=== PATIENT | female | born 1950 | race Caucasian/White ===

== ENCOUNTER → 2023-11-25 09:00 | Outpatient (REF) | payer MEDICARE, SELFPAY ==
[2023-11-25 10:23] LABS: % Basophils 0.6 % (0-2); % Eosinophils 1.4 % (0-6); % Immature Granulocytes 1.6 % (0-0.5); % Lymphocytes 27.4 % (20.5-51.1); % Monocytes 12.4 % (1.7-9.3); % Neutrophils 56.6 % (42.2-75.2); Absolute Eosinophils 0.1 10^3/uL (0-0.7); Absolute Immature Granulocytes 0.1 10^3/uL (0-0.05); Absolute Lymphocytes 1.8 10^3/uL (1.2-3.4); Absolute Monocytes 0.8 10^3/uL (0.1-0.6); Absolute Neutrophils 3.6 10^3/uL (1.4-6.5); Hematocrit 37.1 % (37.0-47.0); Hemoglobin 12.3 g/dL (12.0-16.0); Mean Corp Hgb Conc. 33.2 g/dL (33.0-37.0); Mean Corpuscular Hgb 30.9 pg (27.0-31.0); Mean Corpuscular Volume 93.2 fL (81.0-99.0); Mean Platelet Volume 10.8 fL (7.4-10.4); Nucleated Red Blood Cells % 0 %; Platelet Count 271 10^3/uL (130-400); Red Blood Cell Count 3.98 10^6/uL (4.20-5.40); Red Cell Dist. Width 13.2 % (11.5-14.5); White Blood Cell Count 6.4 10^3/uL (4.8-10.8)
[2023-11-25 10:48] LABS: ALT (SGPT) 264 U/L (0-35); AST (SGOT) 50 U/L (14-36); Albumin 3.9 g/dl (3.5-5.0); Alkaline Phosphatase 197 U/L (38-126); Blood Urea Nitrogen 13 mg/dl (7-17); Calcium 9.6 mg/dl (8.4-10.2); Carbon Dioxide 29 mmol/L (22-30); Chloride 103 mmol/L (98-107); Glucose 103 mg/dl (70-99); HDL Cholesterol 26 mg/dl; LDL Cholesterol, Calculated 118 mg/dl; Potassium 4.6 mmol/L (3.5-5.1); Sodium 142 mmol/L (135-145); Total Bilirubin 3.1 mg/dl (0.2-1.3); Total Cholesterol 190 mg/dl (50-199); Total Protein 7.1 g/dl (6.3-8.2); Triglyceride 230 mg/dl (10-149); Very Low Density Lipoprotein 46 mg/dl (0-30); eGFR > 60.00
[2023-11-25 11:08] LABS: TSH Reflex To Free T4 2.21 uIU/ml (0.47-4.68)
== END ==
LOC: REG 09:00
PROVIDERS: ATTENDING PHYSICIAN Family Medicine
DX: R73.9 Hyperglycemia, unspecified (principal); Z79.899 Other long term (current) drug therapy; E78.41 Elevated Lipoprotein(a); Z00.00 Encounter for general adult medical examination without abnormal findings; E83.52 Hypercalcemia
CPT/HCPCS: 36415; 80053; 80061; 84443; 85025

== ENCOUNTER 2023-11-25 22:42 | Observation (INO) | payer MEDICARE, SELFPAY ==
[2023-11-25 17:28] VITALS: BP 140/88
[2023-11-25 19:56] VITALS: BP 118/62
[2023-11-25 19:58] VITALS: BMI 19.3
--- NOTE | 2023-11-25 20:53 | ED.GENMED ---
History of Present Illness
General
Chief Complaint: Abnormal Lab Value
Source: patient
Exam Limitations: none
Time Seen by Provider: 11/25/23 19:12
Nursing documentation reviewed up to this point in time: agreed with
Travel History
Have you had any contact with someone who has COVID-19?: No
Do you have any symptoms of coronavirus? Fever > 100 degrees, chills, cough, shortness of breath, sore throat, loss of taste or smell, muscle aches, or headache?: No
History of Present Illness
History of Present Illness:
Patient presents to ED after an outpatient routine, annual blood work revealed abnormal liver function test. Of note, 1 week ago, patient does report having had 1 episode of vomiting preceded by upper abdominal pain, which now has resolved
completely. Denies fever or chills. Denies trauma. Denies recent change in diet. Denies recent travel. Denies sick contact. Patient otherwise is healthy and only takes bbhe-lgo-kfkjoex vitamins and fish oil. Denies previous history of similar
symptoms.
Review of Systems
Review of Systems
Allergies reviewed?: Yes
All Other Systems: ROS reviewed and negative except as documented in HPI and ROS
Constitutional: Reports no symptoms; Denies fever
ABD/GI: Reports abdominal pain, nausea and vomiting; Denies diarrhea
: Reports no symptoms
Musculoskeletal: Reports no symptoms
Skin: Reports no symptoms
Neurological: Reports no symptoms; Denies weakness
Phy Exam
Physical Exam
Physical Exam:
Physical Exam
General: no apparent distress, not acutely ill. afebrile
Head: nc/at. eomi
Neck: supple. no meningeal signs.
Heart: s1/s2 regular rate and rhythm, no murmur. equal radial pulses.
Lungs: no acute respiratory distress. clear bilaterally
Abdomen: normal bowel sounds. not tender. no distention.
Neuro: alert and oriented. no focal neurological deficits
Skin: no rash
Psychiatric: well kept. interactive and cooperative
Extremities: no edema. no calf tenderness.
Course
Orders/Labs/Results
Orders:
Orders
11/25/23 20:39
US Abdomen Complete/Upper Urgent
Comment:
Reason For Exam: upper abd pain with abnormal LFTs
11/25/23 22:15
0.9% Sodium Chloride 1000 ml [Nss] 1,000 ml IV 100 mls/hr
11/25/23 22:29
Admit/Transfer Patient As Directed
Co-Sign Provider:
Level of Care: Observation services
Assign to:: Medical/Surgical
Physician / Group: deo
Diagnosis: transaminitis
11/25/23 22:30
Code Status As Directed
Resuscitation Status: Full Code
Vital Signs
Initial and Last Documented VS:
Initial Vital Signs
Temp Pulse Resp BP Pulse Ox
99.2 F 105 16 140/88 100
11/25/23 17:28 11/25/23 17:28 11/25/23 17:28 11/25/23 17:28 11/25/23 17:28
Last Documented Vital Signs
Temp Pulse Resp BP Pulse Ox
99.2 F 105 16 107/94 97
11/25/23 17:28 11/25/23 17:28 11/25/23 17:28 11/25/23 21:20 11/25/23 21:30
MDM/Problems Addressed
MDM/Problems Addressed:
Abdominal ultrasound report reviewed and discussed with COMPA Conde. Recommends MRCP in a.m.
*Critical Care Note
Total Time (30-74mins, 75-104mins- exclusive of procedures): Not Applicable
ED Attending Note
-
Portions of this chart may have been created with voice recognition software.� Occasional wrong word or��sound alike� substitutions may have occurred due to the inherent limitations of voice recognition software.
Discharge Plan
Departure
Patient Disposition: Admit
Date of Disposition: 11/25/23
Time of Disposition: 21:52
Admit to: Med/Surg
Presentation/result/management discussed w/ accepting MD/DO: Hospitalist
Discharge Problem:
Abnormal LFTs, Abdominal ultrasound, abnormal
Interventions
Interventions:
*Risk Screen - Suicide Last Done: 11/25/23 19:58
*General Assessment Last Done: 11/25/23 19:58
*Neglect/Abuse Screening Last Done: 11/25/23 19:58
ED- Fall Risk Assessment Last Done: 11/25/23 20:01
*ED COVID-19 Vaccine History Last Done: 11/25/23 17:28
[2023-11-25 21:20] VITALS: BP 107/94
[2023-11-25] MEDS: NSS 1000 IV (22:04)
--- NOTE | 2023-11-25 22:35 | HPS.HSE ---
Family Physician
-
Family Physician: Tiffany Urbina
Chief Complaint
-
transaminitis
History of Present Illness
73-year-old female without past medical history of gallstones, cholecystectomy, presenting for abnormal liver function tests on annual outpatient labs. 1 week ago patient 1 episode of vomiting preceded by upper abdominal pain which is now
completely resolved. She states that she has been having increasing gas pain building up to last week. She took Pepto-Bismol and Pepcid for the pain. She did intermittently have some chills. Her urine has been darker in her stool has been darker
secondary to Pepto-Bismol but denies any lightening of stool.
Patient states that she took aloe vera last week. She also took some milk thistle this week to help with the pain.
Patient has a history of gallstones and infected gallbladder status post cholecystectomy 15 years ago. Prior to cholecystectomy she was having periodic abdominal pain attribute to gallstones. She denies any recurrent abdominal pain since the
cholecystectomy until last week.
Denies smoking or alcohol use.
Medical History
Past Medical History
Past Medical History: Reports Other (gallstones, cholecystectomy)
Past Surgical History: Reports Cholecystectomy
Social History
Tobacco: Non-smoker
Alcohol: None
Drug: None
Family History
Family History: Not pertinent
Allergies / Home Medications
Allergies reflects when Allergies were last updated in [facility].
Home Medications with original date entered in [facility]
Allergy/Medication List:
Allergies
Allergy/AdvReac Type Severity Reaction Status Date / Time
No Known Allergies Allergy Verified 11/25/23 22:00
Home Medications
ascorbic acid (vitamin C) 1,000 mg tablet (Vitamin C) 1,000 mg PO QPM 11/25/23
cholecalciferol (vitamin D3) 25 mcg (1,000 unit) tablet (Vitamin D3) 25 mcg PO QPM 11/25/23
omega 5-gox-fzk-fish oil 1,000 mg (120 mg-180 mg) capsule (Fish Oil) 1 cap PO QPM 11/25/23
Review of Systems
-
History Source: Patient
A 12 point ROS was completed and negative except as noted: Yes
Constitutional: Reports No Symptoms
EENT: Reports No Symptoms
Respiratory: Reports No Symptoms
Cardiac: Reports No Symptoms
Abdomen/GI: Reports See HPI
: Reports No Symptoms
Musculoskeletal: Reports No Symptoms
Skin: Reports No Symptoms
Neurological: Reports No Symptoms
Endocrine: Reports No Symptoms
Hematologic/Lymphatic: Reports No Symptoms
Psych: Reports No Symptoms
Physical Exam
Vital Signs
Vital Signs
Temp Pulse Resp BP Pulse Ox
99.2 F 105 16 107/94 97
11/25/23 17:28 11/25/23 17:28 11/25/23 17:28 11/25/23 21:20 11/25/23 21:30
Physical Exam
General: Well Developed, Well Nourished and No Apparent Distress
HEENT: NormoCephalic, Moist mucous membranes and Atraumatic
Respiratory: Clear
Cardiac: S1/S2 and Regular Rhythm; No Murmur or Rub
GI: Soft, Non Tender, Non Distended and Normal Bowel Sounds; No Organomegaly
Rectal: Deferred by Provider
Musculoskeletal: No Clubbing, No Cyanosis and No Edema
Skin: No Rash
Neuro: Nonfocal/grossly intact
Data Reviewed
-
Lab Data: Labs Reviewed by me
Old Records: Reviewed
Impression/Plan
-
IMPRESSION:
PLAN:
# Transaminitis/hyperbilirubinemia possible etiologies include biliary obstruction, herbal supplements
-Abdominal ultrasound shows biliary ductal dilatation, increased echogenicity in the liver consistent with underlying hepatocellular disease
-Check hepatitis panel
-MRCP
-GI consulted
History of gallstones/cholecystitis status postcholecystectomy
Full code
DVT prophylaxis�heparin
Regular diet
[2023-11-25 23:00] VITALS: BP 126/61
[2023-11-25 23:14] VITALS: BMI 19.4
[2023-11-25 23:22] VITALS: BP 136/65
[2023-11-26] VITALS (15 sets, daily range): BP systolic 107–157; BP diastolic 37–77
--- NOTE | 2023-11-26 00:42 | PTCARENOTE ---
Received patient from ER, AAOx4. Ambulating with steady gait. No c/o pain at this time. Oriented to unit, call rome in reach. Plan of care continues.
[2023-11-26 05:35] LABS: % Basophils 1.1 % (0-2); % Eosinophils 1.8 % (0-6); % Immature Granulocytes 1.3 % (0-0.5); % Lymphocytes 33.8 % (20.5-51.1); % Monocytes 14.6 % (1.7-9.3); % Neutrophils 47.4 % (42.2-75.2); Absolute Basophils 0.1 10^3/uL (0-0.2); Absolute Eosinophils 0.1 10^3/uL (0-0.7); Absolute Immature Granulocytes 0.1 10^3/uL (0-0.05); Absolute Lymphocytes 1.9 10^3/uL (1.2-3.4); Absolute Monocytes 0.8 10^3/uL (0.1-0.6); Absolute Neutrophils 2.6 10^3/uL (1.4-6.5); Hematocrit 31.4 % (37.0-47.0); Hemoglobin 10.3 g/dL (12.0-16.0); Mean Corp Hgb Conc. 32.8 g/dL (33.0-37.0); Mean Corpuscular Hgb 30.8 pg (27.0-31.0); Mean Platelet Volume 10.7 fL (7.4-10.4); Nucleated Red Blood Cells % 0 %; Platelet Count 233 10^3/uL (130-400); Red Blood Cell Count 3.34 10^6/uL (4.20-5.40); Red Cell Dist. Width 13.1 % (11.5-14.5); White Blood Cell Count 5.5 10^3/uL (4.8-10.8)
[2023-11-26 05:57] LABS: ALT (SGPT) 186 U/L (0-35); AST (SGOT) 47 U/L (14-36); Alkaline Phosphatase 142 U/L (38-126); Blood Urea Nitrogen 15 mg/dl (7-17); Calcium 8.6 mg/dl (8.4-10.2); Carbon Dioxide 27 mmol/L (22-30); Chloride 110 mmol/L (98-107); Estimated Creatinine Clearance 67 ml/min; Glucose 95 mg/dl (70-99); Potassium 4.3 mmol/L (3.5-5.1); Sodium 142 mmol/L (135-145); Total Bilirubin 1.9 mg/dl (0.2-1.3); Total Protein 5.6 g/dl (6.3-8.2); eGFR > 60.00
[2023-11-26 06:25] LABS: Hepatitis B Surface Antigen Negative (Negative)
[2023-11-26 06:33] LABS: Hepatitis A IgM Antibody Negative (Negative); Hepatitis B Core Ab, IgM Negative (Negative)
[2023-11-26 06:42] LABS: Hepatitis B Surface Antibody Positive; Hepatitis C Antibody Negative (Negative)
--- NOTE | 2023-11-26 09:01 | CON.GI ---
Addendum entered and electronically signed by Susanna Veronica DO 11/26/23 17:12:
Agree with note below. Patient has evidence of choledocholithiasis on MRI/MRCP and will go for ERCp today with Dr. Hagen
Addendum entered and electronically signed by TONY Hector 11/26/23 13:57:
MRI /MRCP showing choledocholithiasis with 12 mm filling defect in the distal common bile duct which may represent a collection of multiple calculi. Secondary biliary ductal dilatation. Incidental findings include small hepatic and renal cysts.
Probable incidental left ovarian cyst. Consider further evaluation/follow-up pelvic ultrasound. 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
-- Patient, RN and medicine attending updated. Remains NPO. Will have ERCP later on today.
Original Note:
Consultation
-
Date/Time Consultation Requested: 11/25/230
Date/Time Consultation Performed: 11/26/23 0840
Requesting Provider: Dr. Quijano
Performing Provider: Dr. Veronica/TONY Tatum
Reason for Consultation: RUQ pain, dilated ducts, elevated LFTs
Medical History
Chief Complaint / HPI
Chief Complaint: elevated LFT, RUQ pain
History of Present Illness:
73 y/o female [id number] female with past medical history of hyperlipidemia, osteopenia and colon polyps presents to the emergency room after having outpatient labs that showed elevated LFTs. Prior to this the patient had epigastric/right
upper quadrant pain associated with low-grade fever, chills, bilious vomiting and bilirubinuria. Asked to evaluate for the same. The patient states that 1 week ago she started with acute onset of epigastric discomfort that she describes as a
burning with a tightness that radiated to the right and through to the back. She then described having bilious vomiting for approximately 1 day and a low-grade fever approximately 100 degrees. She did not take any Tylenol or NSAIDs for this fever.
She did take Pepcid and Pepto-Bismol which turned her stools darker. She did have bilirubinuria the following day. She states by Wednesday her pain subsided. The bilirubinuria continued. She did have a routine office visit scheduled and labs which
showed elevated liver function test. Because of this she was sent to the emergency room where she was found to have a temperature of 99.2. At that time WBC count 6.4, currently at 5.5, hemoglobin is 12.3 now 10.3. She does not have a known
anemia. She was given 1 L fluids and continues on IV fluids at this time. MCV 94.0, MCH 30.8, platelet count 233. The patient states that she used to drink 1 to 2 glasses of wine or beer but quit in August. BUN is normal at 15 with a
creatinine of 0.6. This was never elevated. Total bilirubin 1.9 (down from 3.1) direct bilirubin 1.3. AST 47 (down from 50), ALT 186 (down from 264), alk phos 142 (down from 197). Triglycerides 230, albumin 3.0. Hepatitis serologies negative.
No coags performed. Ultrasound the abdomen shows increased echogenicity in the liver compatible with underlying hepatocellular disease which is most commonly relating to fatty liver. Otherwise unremarkable ultrasound status postcholecystectomy.
Common bile duct measures up to 12 mm and there is mild intrahepatic biliary ductal dilatation. The patient denies any hematochezia, dysphagia or odynophagia. She denies any early satiety or unintentional weight loss. She denies any tattoos,
piercings, IV drug use, no recent travel, changes in medications. She only takes sqqh-lrs-ksdmmia vitamins. She has no changes in supplements. No sick contacts or raw or spoiled food.
Past Medical History
Past Medical History: Hypercholesterolemia and Other (osteopenia)
Past Surgical History: Cholecystectomy
Social History
Tobacco: Non-Smoker
Alcohol: Other (Was drinking 2 glasses wine/beer daily. Stopped in Aug)
Drug: None
Family History
Family History: Other (Family history of gastrointestinal malignancy or IBD)
Allergies / Home Medications
Allergy/AdvReac Type Severity Reaction Status Date / Time
No Known Allergies Allergy Verified 11/25/23 22:00
�Medication �Instructions �Recorded
ascorbic acid (vitamin C) 1,000 mg 1,000 mg PO QPM 11/25/23
tablet (Vitamin C)
cholecalciferol (vitamin D3) 25 25 mcg PO QPM 11/25/23
mcg (1,000 unit) tablet (Vitamin
D3)
omega 8-pvz-tih-fish oil 1,000 mg 1 cap PO QPM 11/25/23
(120 mg-180 mg) capsule (Fish Oil)
Review of Systems
-
All other systems: A 12 pt ROS was Negative except as stated above in HPI
Vital Signs
Temp Pulse Resp BP Pulse Ox
97.9 F 74 18 139/67 99
11/26/23 07:15 11/26/23 07:15 11/26/23 07:15 11/26/23 07:15 11/26/23 07:15
Physical Exam
Exam
General: Well Nourished and No Apparent Distress
HEENT: Other (Sclera icteric)
Respiratory: Clear
Cardiac: Regular Rhythm and Murmur
GI: Soft, Non Distended, Normal Bowel Sounds and Tender (Very mild tenderness right upper quadrant/epigastric)
Musculoskeletal: No Edema
Skin: Warm and Dry
Neuro: AO x 3
Psych: Calm
Results
WBC 5.5 10^3/uL (4.8-10.8) 11/26/23 04:47
Hgb 10.3 g/dL (12.0-16.0) L 11/26/23 04:47
Hct 31.4 % (37.0-47.0) L 11/26/23 04:47
MCV 94.0 fL (81.0-99.0) 11/26/23 04:47
Plt Count 233 10^3/uL (130-400) 11/26/23 04:47
Absolute Neuts (auto) 2.6 10^3/uL (1.4-6.5) 11/26/23 04:47
Sodium 142 mmol/L (135-145) 11/26/23 04:47
Potassium 4.3 mmol/L (3.5-5.1) 11/26/23 04:47
Chloride 110 mmol/L (98-107) H 11/26/23 04:47
Carbon Dioxide 27 mmol/L (22-30) 11/26/23 04:47
BUN 15 mg/dl (7-17) 11/26/23 04:47
Creatinine 0.6 mg/dL (0.6-1.0) 11/26/23 04:47
Calcium 8.6 mg/dl (8.4-10.2) 11/26/23 04:47
Total Bilirubin 1.9 mg/dl (0.2-1.3) H D 11/26/23 04:47
AST 47 U/L (14-36) H 11/26/23 04:47
ALT 186 U/L (0-35) H 11/26/23 04:47
Alkaline Phosphatase 142 U/L (38-126) H 11/26/23 04:47
Hepatitis A IgM Ab Negative (Negative) 11/26/23 04:47
Hep Bs Antibody Positive 11/26/23 04:47
Hep B Core IgM Ab Negative (Negative) 11/26/23 04:47
Hepatitis C Antibody Negative (Negative) 11/26/23 04:47
Diagnostic Image Results:
Ultrasound of the abdomen 11/25/23:
Liver is increased in echotexture without evidence of focal lesion. The portal and hepatic vessels appear grossly patent.
Gallbladder absent. Common bile duct measures up to 12 mm and there is mild intrahepatic biliary ductal dilatation, likely within normal limits for patient age and postcholecystectomy status.
Limited visualization of the tail of the pancreas, with the visualized portion of the pancreas unremarkable. Spleen measures 7.9 cm in length, which is not enlarged. No free fluid in the upper abdomen.
Right kidney measures 9.8 cm, and the left kidney measures 10.5 cm in length. No hydronephrosis.
Visualized portions of the abdominal aorta and inferior vena cava appear unremarkable.
Prior GI Procedures:
EGD: never had
Colonoscopy: 06/15/2022: ([facility]) One 7 mm polyp in the transverse colon, removed with
a cold snare. Resected and retrieved. (Tubular adenoma)
- Diverticulosis in the sigmoid colon and in the
descending colon.
- Non-bleeding external hemorrhoids.
- The examined portion of the ileum was normal.
Colonoscopy 02/20/2016: ([facility]) - One 15 mm polyp in the rectum. Resected and retrieved. (Tubulovillous adenoma)
Clips were placed. Treated with argon plasma coagulation
(APC).
- Non-bleeding external hemorrhoids.
- Mild diverticulosis in the sigmoid colon.
Assessment / Plan
-
73 y/o female [id number] female with past medical history of hyperlipidemia, osteopenia and colon polyps presents to the emergency room after having outpatient labs that showed elevated LFTs. Prior to this the patient had epigastric/right
upper quadrant pain associated with low-grade fever, chills, bilious vomiting and bilirubinuria. Total bilirubin 1.9 (down from 3.1) direct bilirubin 1.3. AST 47 (down from 50), ALT 186 (down from 264), alk phos 142 (down from 197). Triglycerides
230, albumin 3.0. Hepatitis serologies negative. No coags performed. Ultrasound the abdomen showing common bile duct measuring up to 12 mm and mild intrahepatic biliary ductal dilatation. Although patient is status postcholecystectomy in the
light of having right upper quadrant pain epigastric pain fevers and bilirubinuria MRI MRCP will be obtained to rule out choledocholithiasis.
Impression:
Elevated LFTs in an obstructive pattern
Right upper quadrant pain/epigastric pain
CBD dilatation up to 12 mm and mild intrahepatic ductal dilatation
Anemia, patient with dark stools although after Pepto-Bismol, BUN within normal limits
Plan:
-MRI/MRCP, patient going down now
-N.p.o. except for essential meds
-Continue IV fluids
-Check PT/INR
-Possibility of need for EUS/ERCP later today depending on results of MRI/MRCP. Discussed with patient.
-Repeat CBC later on today versus a.m. depending on outcome of MRI/MRCP and hospital course.
-Further recommendations to be forthcoming
Data Reviewed
-
Ultrasound: Report Reviewed by me
Old Records: Reviewed
-
-
Thank you for consultation and allowing me to participate in the patient's care. Please call the loss prevention lead GI physician during the after hours with any questions or concerns.
[2023-11-26 09:08] LABS: Direct Bilirubin 1.3 mg/dl (0.0-0.4)
[2023-11-26] MEDS: NSS 1000 IV (10:25)
[2023-11-26] MEDS: HEPARIN 5000 UNITS SC ×2 (10:26→20:34)
[2023-11-26 11:06] LABS: INR 1.04; PT 13.4 Sec (11.4-14.6)
--- NOTE | 2023-11-26 14:59 | W.PN.HOSP.TC ---
Today's Communication/Plan
-
for ERCP today
continue other care
Assessment / Plan
Assessment / Plan
MRI abd
Choledocholithiasis, with 12 mm filling defect in the distal common bile duct, which may represent a collection of multiple calculi. Secondary biliary ductal dilatation.
Incidental findings include small hepatic and renal cysts. Probable incidental left ovarian cyst. Consider further evaluation/follow-up pelvic ultrasound. 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
1. Acute choledocholithiasis
Transaminitis
History of cholecystectomy
-Abdominal ultrasound shows biliary ductal dilatation, increased echogenicity in the liver consistent with underlying hepatocellular disease
-MRI MRCP showing 1.2 cm distal CBD stone.
-GI evaluated and patient to be taken for ERCP
-No signs of sepsis/cholangitis clinically, start on zosyn if intra EGD finding suggestive of this
-NPO/IVF/Pain meds/anti-emetics
Normocytic anemia
Ovarian cyst
Hepatic cyst
Renal cyst
History of gallstones/cholecystitis status postcholecystectomy
Full code
DVT prophylaxis�heparin
Anticipated Discharge: 24 - 48 hours
Subjective/Interval History
-
Date of Service: November 26, 2023
Denies having any abdominal pain/nausea/vomiting
afebrile overnight
Objective Data
-
Labs:
Laboratory Results
11/26/23 11/26/23
04:47 10:41
WBC 5.5
Hgb 10.3 L
Hct 31.4 L
Plt Count 233
PT 13.4
INR 1.04
Sodium 142
Potassium 4.3
Chloride 110 H
Carbon Dioxide 27
BUN 15
Creatinine 0.6
Glucose 95
Calcium 8.6
Total Bilirubin 1.9 H D
AST 47 H
ALT 186 H
Alkaline Phosphatase 142 H
Vital Signs:
Vital Signs
Temp Pulse Resp BP Pulse Ox
97.9 F 74 18 139/67 99
11/26/23 07:15 11/26/23 07:15 11/26/23 07:15 11/26/23 07:15 11/26/23 09:00
Review of Systems
-
Respiratory: Reports No Symptoms
Cardiac: Reports No Symptoms
Abdomen/GI: Reports No Symptoms
Physical Exam
-
General: No Apparent Distress and Comfortable
HEENT: Negative Oxygen
Respiratory: Clear to Auscultation
Cardiac: Regular Rhythm and S1/S2; Negative Murmur or Rub
GI: Soft, Nontender and Nondistended
Musculoskeletal: No Edema
Neuro: Awake, Alert, Oriented, No Motor Deficits and Nonfocal/Grossly Intact
Psych: Calm
--- NOTE | 2023-11-26 15:58 | CM ---
Addendum entered by Gabrielle Schultz 11/26/23 16:20:
patient signed obs letter and placed in chart.
Original Note:
met with patient at bedside.patient lives alone in house with 1 [address],her bed and bath is on the second level,she amb i and is I with her adl.she has no home o2 or dme.she has never had a vn or been to ip rehab. her pcp is through [facility].her newsperson is her aunt pearl armando.
patient is adm with abd pain.she is npo,ivf,pain pain,antiemetics.she is for an ercp.Plan is dc home with no needs.patient drove herself to the er.
--- NOTE | 2023-11-26 16:00 | PTCARENOTE ---
Provided report to GI lab. Pt transported at this time.
[2023-11-26] MEDS: VITAMIN C 1000 MG PO (19:54)
[2023-11-26] MEDS: VITAMIN D3 (cholecalciferol) 25 MCG PO (19:54)
--- NOTE | 2023-11-26 19:56 | SUR.PHASEI ---
confused post anesthesia and ERCP, nervous, small amount of blood right corner of mouth - bit lip. cold cloth used - Dr Hagen visits - explains procedure and post care. patient then with sudden onset of chest pain, difficult to assess - vss,
Josh advised and EKG done - normal. When EKG completed - patient felt fine, pain gone. at 1855 - mentally much clearer. comfortable, talkative, discharge at 1930 to room - able to walk with assist of one to bed from hallway. hand off at
bedside
[2023-11-27] MEDS: NSS 1000 IV (00:24)
[2023-11-27] MEDS: MYLICON 80 MG PO (01:16)
[2023-11-27 03:31] VITALS: BP 130/63
[2023-11-27 07:06] LABS: Hematocrit 31.2 % (37.0-47.0); Hemoglobin 10.3 g/dL (12.0-16.0); Mean Corpuscular Hgb 31.4 pg (27.0-31.0); Mean Corpuscular Volume 95.1 fL (81.0-99.0); Platelet Count 284 10^3/uL (130-400); Red Blood Cell Count 3.28 10^6/uL (4.20-5.40); Red Cell Dist. Width 12.9 % (11.5-14.5); White Blood Cell Count 7.9 10^3/uL (4.8-10.8)
[2023-11-27 07:31] LABS: ALT (SGPT) 155 U/L (0-35); AST (SGOT) 62 U/L (14-36); Albumin 3.1 g/dl (3.5-5.0); Alkaline Phosphatase 167 U/L (38-126); Direct Bilirubin 1.3 mg/dl (0.0-0.4); Total Bilirubin 1.9 mg/dl (0.2-1.3); Total Protein 5.7 g/dl (6.3-8.2)
[2023-11-27 07:55] VITALS: BP 124/56
[2023-11-27] MEDS: HEPARIN 5000 UNITS SC (09:39)
--- NOTE | 2023-11-27 10:20 | W.PN.GI.CBS2 ---
Today's Communication / Plan
-
-- Advance diet, told her to start slow
-- Possible discharge per hospitalist if she tolerates that well
Assessment / Plan
-
73-year-old female with past medical history of hyperlipidemia, osteopenia and colon polyps presents to the emergency room after having outpatient labs that showed elevated LFTs. Prior to this the patient had epigastric/right upper quadrant pain
associated with low-grade fever, chills, bilious vomiting and bilirubinuria. Total bilirubin 1.9 (down from 3.1) direct bilirubin 1.3. AST 47 (down from 50), ALT 186 (down from 264), alk phos 142 (down from 197). Triglycerides 230, albumin 3.0.
Hepatitis serologies negative. No coags performed. Ultrasound the abdomen showing common bile duct measuring up to 12 mm and mild intrahepatic biliary ductal dilatation. Although patient is status postcholecystectomy in the light of having right
upper quadrant pain epigastric pain fevers and bilirubinuria MRI MRCP will be obtained to rule out choledocholithiasis.
Impression:
Elevated LFTs in an obstructive pattern
Right upper quadrant pain/epigastric pain
CBD dilatation up to 12 mm and mild intrahepatic ductal dilatation
Anemia, patient with dark stools although after Pepto-Bismol, BUN within normal limits
MRI on 11/26/2023 -choledocholithiasis with a 12 mm filling defect in the distal common bile duct with secondary biliary ductal dilatation,
Also incidental left ovarian cyst
ERCP 11/26/2023, ERCP with Dr. Hagen revealed multiple large choledocholithiasis with removal as well as a biliary sphincterotomy. Biliary tree was swept and clear
11/27/23 -LFTs are similar to yesterday's pattern, they have improved from admission and she is status post ERCP
Patient is feeling well
We will advance diet and if she tolerates lunch well would be okay for discharge today
She has follow-up with her PCP on Wednesday and can get repeat LFTs at that time
Subjective
Subjective
Date of Service: November 27, 2023
Patient doing well postop. She is comfortable. She is hungry and would like to go home. She has an appointment next Wednesday with her PCP already scheduled
Objective
Data Reviewed
Laboratory Data:
Laboratory Results
11/27/23 05:27
11/26/23 04:47
Laboratory Results
PT 13.4 Sec (11.4-14.6) 11/26/23 10:41
INR 1.04 11/26/23 10:41
Total Bilirubin 1.9 mg/dl (0.2-1.3) H 11/27/23 05:27
AST 62 U/L (14-36) H 11/27/23 05:27
ALT 155 U/L (0-35) H 11/27/23 05:27
Alkaline Phosphatase 167 U/L (38-126) H 11/27/23 05:27
Vital Signs and I&O:
Vital Signs
Temp Pulse Resp BP Pulse Ox
98.9 F 72 16 124/56 98
11/27/23 07:55 11/27/23 07:55 11/27/23 07:55 11/27/23 07:55 11/27/23 07:55
I&O
11/26/23 11/27/23 11/28/23
06:59 06:59 06:59
Intake Total 1580 / 1580
Output Total 1100 / 1100
Balance 480 / 480
Physical Exam
Physical Exam
HEENT: Other (Mildly icteric)
Cardiology: Normal Sinus Rhythm
GI: Soft and Tender (Mild tenderness in the epigastric area with palpation)
Extremities: No Edema
Neuro: Non Focal
[2023-11-27] MEDS: NSS IV (10:45)
--- NOTE | 2023-11-27 11:22 | W.PN.HOSP.TC ---
Today's Communication/Plan
-
d/c home
Assessment / Plan
Assessment / Plan
MRI abd
Choledocholithiasis, with 12 mm filling defect in the distal common bile duct, which may represent a collection of multiple calculi. Secondary biliary ductal dilatation.
Incidental findings include small hepatic and renal cysts. Probable incidental left ovarian cyst. Consider further evaluation/follow-up pelvic ultrasound. 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
1. Acute choledocholithiasis
Transaminitis
History of cholecystectomy
-Abdominal ultrasound shows biliary ductal dilatation, increased echogenicity in the liver consistent with underlying hepatocellular disease
-MRI MRCP showing 1.2 cm distal CBD stone.
-s/p ERCP and stone removal
-LFT remains minimally elevated, f/u script for op check provided
-discussed with GI and no concern for cholangitis, no abx indicated
-Trial of regular diet and discharge home if tolerated
Normocytic anemia
Ovarian cyst
Hepatic cyst
Renal cyst
History of gallstones/cholecystitis status postcholecystectomy
Full code
DVT prophylaxis�heparin
More than 30 minutes spent in discharge including
Final examination of the patient
Summarizing hospital stay
Instructions for continuing care to all relevant caregivers
Preparation of discharge records, prescriptions, and referral forms
Total time spent (in minutes): 38 mins
Anticipated Discharge: Today
Subjective/Interval History
-
Date of Service: November 27, 2023
afebrile in night
denies excessive abd pain/nausea/vomiting
no other issues reported
Objective Data
-
Labs:
Laboratory Results
11/27/23
05:27
WBC 7.9
Hgb 10.3 L
Hct 31.2 L
Plt Count 284 D
Total Bilirubin 1.9 H
AST 62 H
ALT 155 H
Alkaline Phosphatase 167 H
Vital Signs:
Vital Signs
Temp Pulse Resp BP Pulse Ox
98.9 F 72 16 124/56 98
11/27/23 07:55 11/27/23 07:55 11/27/23 07:55 11/27/23 07:55 11/27/23 07:55
I&O
11/26/23 11/27/23 11/28/23
06:59 06:59 06:59
Intake Total 1580 / 1580
Output Total 1100 / 1100
Balance 480 / 480
Review of Systems
-
Respiratory: Reports No Symptoms
Cardiac: Reports No Symptoms
Abdomen/GI: Denies Abdominal Pain, Nausea or Vomiting
Physical Exam
-
General: Negative Appears in Distress
HEENT: Negative Oxygen
GI: Soft, Nontender and Nondistended
Neuro: Awake, Alert, Oriented and No Motor Deficits
Psych: Calm
--- NOTE | 2023-11-27 11:24 | W.DCSUMMARY ---
Discharge Summary
Discharge Data
Date of Admission: 11/25/23
Date of Discharge: 11/27/23
-
Pending Results: No
Hospital Course
Discharging Physician : Dr Chon Apple
Disposition : Home
Primary care physician : Dr Tiffany Urbina
Principal Discharge diagnosis :
Acute choledocholithiasis
Acute transaminitis
Chronic Discharge diagnosis :
History of cholecystectomy
Normocytic anemia
Ovarian cyst
Hepatic cyst
Renal cyst
Hospital Course :
Patient is a 73-year-old female with above-mentioned past medical history was sent for abnormal LFT. Patient had episode of abdominal pain and vomiting 1 week before which resolved but noticed to having worsening abdominal discomfort and/bloating.
Ngvr-cms-txhmldj medication did not help and patient had outpatient blood work showing elevated liver function test. Patient was sent in to ER for further evaluation and ultrasound in ER was showing biliary ductal dilation and some increased
echogenicity in the liver. GI was consulted and patient had a follow-up MRI MRCP which showed a 1.2 cm distal CBD stone. Patient was taken for an ERCP with multiple biliary stone removed. No signs of cholangitis/sepsis. Postprocedure patient was
monitored in hospital overnight and was advanced on diet. Patient was discharged at this point home with follow-up liver function test in 1 week.
Important imaging findings :
None
Procedure findings :
None
Discharge Plan
-
Patient Disposition: Home (Routine Discharge)
Discharge Diagnosis/Procedures: Choledocholithiasis s/p ercp
Condition: Fair
Diet: Regular
Activity: As tolerated
Driving Restrictions: As prior to admission
Bathing Restrictions: OK to Shower
Blood Work: LFT in 1 week
Referrals:
Tiffany Urbina MD [Family Provider] - in one week
Prescriptions:
New
acetaminophen [Tylenol Extra Strength] 500 mg tablet
1,000 mg PO Q8HPRN PRN (Reason: Pain) Qty: 30 0RF
Continued
ascorbic acid (vitamin C) [Vitamin C] 1,000 mg Tablet
1,000 mg PO QPM
cholecalciferol (vitamin D3) [Vitamin D3] 25 mcg (1,000 unit) Tablet
25 mcg PO QPM
omega 4-lrv-fji-fish oil [Fish Oil] 1,000 mg (120 mg-180 mg) Capsule
1 cap PO QPM
Discharge Orders:
Discharge Patient (As Directed); Ordered 11/27/23
Ordered By: Chon Apple
Discharge Date and Time
Discharge Date/Time: 11/27/23 14:26
Print Language: FINNISH
--- NOTE | 2023-11-27 12:05 | CM ---
CM reviewed chart and noted plan for dc pending toleration diet
Bedside meeting with pt- she notes independence in room
Plans to drive self home
Discharge Disposition- home, no needs- drive self
[2023-11-27 12:08] VITALS: BP 117/51
--- NOTE | 2023-11-27 12:48 | PTCARENOTE ---
Pt tolerated regular diet without any difficulty. Pt's temp at 1200 check 99.7. Rechecked and currently 99.0. Pt feels fine. Made Dr. Apple aware of temp in the 99 range. fine with pt being discharged.
== END 2023-11-27 14:26 | disposition home or self-care (01) ==
LOC: 4 EAST ACU 22:42
PROVIDERS: Nurse Practitioner; ADMITTING PHYSICIAN Hospitalist; ATTENDING PHYSICIAN Hospitalist; CONSULT PHYSICIAN Internal Medicine; EMERGENCY PHYSICIAN Emergency Medicine; FAMILY PHYSICIAN Family Medicine
DX: K80.50 Calculus of bile duct without cholangitis or cholecystitis without obstruction (principal); R79.89 Other specified abnormal findings of blood chemistry; R10.10 Upper abdominal pain, unspecified; R74.01 Elevation of levels of liver transaminase levels; R14.1 Gas pain; R50.9 Fever, unspecified; M85.80 Other specified disorders of bone density and structure, unspecified site; R11.14 Bilious vomiting; R82.2 Biliuria; E78.00 Pure hypercholesterolemia, unspecified; K57.30 Diverticulosis of large intestine without perforation or abscess without bleeding; D64.9 Anemia, unspecified; K76.9 Liver disease, unspecified; N28.1 Cyst of kidney, acquired; K76.89 Other specified diseases of liver; N83.209 Unspecified ovarian cyst, unspecified side; Z80.0 Family history of malignant neoplasm of digestive organs; Z87.19 Personal history of other diseases of the digestive system; Z90.49 Acquired absence of other specified parts of digestive tract
CPT/HCPCS: 74183; 74330; 76000; 76700; 80053; 80076; 82248; 85025; 85027; 85610; 86705; 86706; 86709; 86803; 87340; 93005; 96360; 99285; A9575; C1726; C1769

== ENCOUNTER → 2023-12-07 11:14 | Outpatient (REF) | payer MEDICARE, SELFPAY ==
[2023-12-07 12:27] LABS: % Basophils 1.6 % (0-2); % Eosinophils 0.8 % (0-6); % Immature Granulocytes 0.5 % (0-0.5); % Lymphocytes 36.3 % (20.5-51.1); % Monocytes 11.9 % (1.7-9.3); % Neutrophils 48.9 % (42.2-75.2); Absolute Basophils 0.1 10^3/uL (0-0.2); Absolute Eosinophils 0.1 10^3/uL (0-0.7); Absolute Lymphocytes 2.3 10^3/uL (1.2-3.4); Absolute Monocytes 0.8 10^3/uL (0.1-0.6); Absolute Neutrophils 3.1 10^3/uL (1.4-6.5); Hematocrit 39.9 % (37.0-47.0); Hemoglobin 13.1 g/dL (12.0-16.0); Mean Corp Hgb Conc. 32.8 g/dL (33.0-37.0); Mean Corpuscular Hgb 30.9 pg (27.0-31.0); Mean Corpuscular Volume 94.1 fL (81.0-99.0); Mean Platelet Volume 10.5 fL (7.4-10.4); Nucleated Red Blood Cells % 0 %; Platelet Count 501 10^3/uL (130-400); Red Blood Cell Count 4.24 10^6/uL (4.20-5.40); Red Cell Dist. Width 12.7 % (11.5-14.5); White Blood Cell Count 6.4 10^3/uL (4.8-10.8)
[2023-12-07 13:43] LABS: ALT (SGPT) 62 U/L (0-35); AST (SGOT) 32 U/L (14-36); Albumin 4.4 g/dl (3.5-5.0); Alkaline Phosphatase 116 U/L (38-126); Blood Urea Nitrogen 21 mg/dl (7-17); Calcium 10.4 mg/dl (8.4-10.2); Carbon Dioxide 24 mmol/L (22-30); Chloride 104 mmol/L (98-107); Glucose 95 mg/dl (70-99); Potassium 5.1 mmol/L (3.5-5.1); Sodium 140 mmol/L (135-145); Total Bilirubin 0.8 mg/dl (0.2-1.3); Total Protein 7.3 g/dl (6.3-8.2); eGFR > 60.00
== END ==
LOC: REG 11:14
PROVIDERS: ATTENDING PHYSICIAN Family Medicine
DX: K80.50 Calculus of bile duct without cholangitis or cholecystitis without obstruction (principal); R74.01 Elevation of levels of liver transaminase levels; R79.89 Other specified abnormal findings of blood chemistry
CPT/HCPCS: 36415; 80053; 85025

== ENCOUNTER → 2024-01-20 10:27 | Outpatient (REF) | payer MEDICARE, SELFPAY ==
[2024-01-20 10:50] LABS: % Basophils 1.3 % (0-2); % Immature Granulocytes 0.2 % (0-0.5); % Lymphocytes 45.5 % (20.5-51.1); % Monocytes 11.7 % (1.7-9.3); % Neutrophils 40.3 % (42.2-75.2); Absolute Basophils 0.1 10^3/uL (0-0.2); Absolute Eosinophils 0.1 10^3/uL (0-0.7); Absolute Lymphocytes 2.2 10^3/uL (1.2-3.4); Absolute Monocytes 0.6 10^3/uL (0.1-0.6); Absolute Neutrophils 1.9 10^3/uL (1.4-6.5); Hematocrit 40.2 % (37.0-47.0); Hemoglobin 13.8 g/dL (12.0-16.0); Ionized Calcium 1.24 mMOL/L (1.15-1.33); Mean Corp Hgb Conc. 34.3 g/dL (33.0-37.0); Mean Corpuscular Hgb 31.7 pg (27.0-31.0); Mean Corpuscular Volume 92.4 fL (81.0-99.0); Mean Platelet Volume 10.8 fL (7.4-10.4); Nucleated Red Blood Cells % 0 %; Platelet Count 194 10^3/uL (130-400); Red Blood Cell Count 4.35 10^6/uL (4.20-5.40); Red Cell Dist. Width 12.3 % (11.5-14.5); White Blood Cell Count 4.8 10^3/uL (4.8-10.8)
[2024-01-20 11:24] LABS: ALT (SGPT) 18 U/L (0-35); AST (SGOT) 21 U/L (14-36); Albumin 4.6 g/dl (3.5-5.0); Alkaline Phosphatase 65 U/L (38-126); Blood Urea Nitrogen 15 mg/dl (7-17); Calcium 9.9 mg/dl (8.4-10.2); Carbon Dioxide 27 mmol/L (22-30); Chloride 107 mmol/L (98-107); Glucose 98 mg/dl (70-99); Sodium 140 mmol/L (135-145); Total Bilirubin 0.5 mg/dl (0.2-1.3); eGFR > 60.00
== END ==
LOC: REG 10:27
PROVIDERS: ATTENDING PHYSICIAN Family Medicine
DX: E83.52 Hypercalcemia (principal)
CPT/HCPCS: 36415; 80053; 82330; 85025

== ENCOUNTER → 2024-05-10 10:47 | Outpatient (REF) | payer MEDICARE, SELFPAY | LOC: HWRAD 10:47 | PROVIDERS: ATTENDING PHYSICIAN Family Medicine | DX: K76.0 Fatty (change of) liver, not elsewhere classified (principal) | CPT/HCPCS: 76700 ==

== ENCOUNTER → 2024-05-16 11:15 | Outpatient (REF) | payer MEDICARE, SELFPAY | LOC: HWWDC 11:15 | PROVIDERS: ATTENDING PHYSICIAN Family Medicine | DX: Z12.31 Encounter for screening mammogram for malignant neoplasm of breast (principal) | CPT/HCPCS: 77063; 77067 ==

== ENCOUNTER → 2024-06-22 09:23 | Outpatient (REF) | payer MEDICARE, SELFPAY ==
[2024-06-22 10:28] LABS: % Basophils 1.4 % (0-2); % Eosinophils 3.2 % (0-6); % Immature Granulocytes 0.2 % (0-0.5); % Lymphocytes 42.4 % (20.5-51.1); % Monocytes 10.8 % (1.7-9.3); Absolute Basophils 0.1 10^3/uL (0-0.2); Absolute Eosinophils 0.2 10^3/uL (0-0.7); Absolute Lymphocytes 2.2 10^3/uL (1.2-3.4); Absolute Monocytes 0.6 10^3/uL (0.1-0.6); Absolute Neutrophils 2.1 10^3/uL (1.4-6.5); Mean Corp Hgb Conc. 33.3 g/dL (33.0-37.0); Mean Corpuscular Hgb 31.5 pg (27.0-31.0); Mean Corpuscular Volume 94.4 fL (81.0-99.0); Mean Platelet Volume 10.9 fL (7.4-10.4); Nucleated Red Blood Cells % 0 %; Platelet Count 194 10^3/uL (130-400); Red Blood Cell Count 4.45 10^6/uL (4.20-5.40); Red Cell Dist. Width 11.9 % (11.5-14.5); White Blood Cell Count 5.1 10^3/uL (4.8-10.8)
[2024-06-22 10:53] LABS: ALT (SGPT) 18 U/L (0-35); AST (SGOT) 21 U/L (14-36); Albumin 4.6 g/dl (3.5-5.0); Alkaline Phosphatase 54 U/L (38-126); Blood Urea Nitrogen 23 mg/dl (7-17); Calcium 9.6 mg/dl (8.4-10.2); Carbon Dioxide 28 mmol/L (22-30); Chloride 106 mmol/L (98-107); Glucose 93 mg/dl (70-99); HDL Cholesterol 79 mg/dl; LDL Cholesterol, Calculated 125 mg/dl; Potassium 4.4 mmol/L (3.5-5.1); Sodium 142 mmol/L (135-145); Total Bilirubin 0.4 mg/dl (0.2-1.3); Total Cholesterol 230 mg/dl (50-199); Total Protein 7.2 g/dl (6.3-8.2); Triglyceride 134 mg/dl (10-149); Very Low Density Lipoprotein 26 mg/dl (0-30); eGFR > 60.00
== END ==
LOC: REG 09:23
PROVIDERS: ATTENDING PHYSICIAN Family Medicine
DX: E78.00 Pure hypercholesterolemia, unspecified (principal); K76.0 Fatty (change of) liver, not elsewhere classified; Z86.0100 Personal history of colon polyps, unspecified
CPT/HCPCS: 36415; 80053; 80061; 85025

== ENCOUNTER → 2025-03-07 08:34 | Outpatient (REF) | payer MEDICARE, SELFPAY ==
[2025-03-07 09:23] LABS: Hematocrit 41.9 % (37.0-47.0); Hemoglobin 14.0 g/dL (12.0-16.0); Mean Corp Hgb Conc. 33.4 g/dL (33.0-37.0); Mean Corpuscular Volume 91.9 fL (81.0-99.0); Nucleated Red Blood Cells % 0 %; Platelet Count 244 10^3/uL (130-400); Red Cell Dist. Width 11.9 % (11.5-14.5)
[2025-03-07 10:46] LABS: ALT (SGPT) 15 U/L (0-35); AST (SGOT) 20 U/L (14-36); Albumin 4.7 g/dl (3.5-5.0); Alkaline Phosphatase 54 U/L (38-126); Blood Urea Nitrogen 22 mg/dl (7-17); Calcium 9.7 mg/dl (8.4-10.2); Carbon Dioxide 27 mmol/L (22-30); Chloride 108 mmol/L (98-107); Glucose 93 mg/dl (70-99); HDL Cholesterol 81 mg/dl; LDL Cholesterol, Calculated 138 mg/dl; Potassium 4.6 mmol/L (3.5-5.1); Sodium 141 mmol/L (135-145); Total Protein 7.2 g/dl (6.3-8.2); Very Low Density Lipoprotein 20 mg/dl (0-30); eGFR > 60.00
== END ==
LOC: REG 08:34
PROVIDERS: ATTENDING PHYSICIAN Family Medicine
DX: E78.00 Pure hypercholesterolemia, unspecified (principal); K76.0 Fatty (change of) liver, not elsewhere classified
CPT/HCPCS: 36415; 80053; 80061; 85025